=== PATIENT | male | born 1965 | race African-American/Black ===

== ENCOUNTER 2016-11-13 14:24 | Emergency (ER) | payer OTHER ==
[~2016-11-13] VITALS: Ht 172.7 cm; Wt 77.1 kg
[~2016-11-13 14:24] MED LIST: AMOXICILLIN500 M2 PO; COMBIVENT1 ARO IH; DAYPRO600 M1 PO; FLONASE ALLERG9.9 ML NAS; HYCODAN,HYDROME10 ML PO; HYDROCODONE BIT1 T11 PO; IBU800 MG PO; NAPROSYN500 MG PO; PERCOCET 325 MG1 TA2 PO; Peridex 473 ML473 ML PO; ROBAXIN750 MG PO; SKELAXIN800 MG PO; ZITHROMAX Z PA250 MG PO; ZITHROMAX250 MG PO
[2016-11-13] MEDS ORDERED: AMLODIPINE BESY1 TAB PO (14:33)
[2016-11-13] MEDS ORDERED: LATANOPROST2.5 ML OP (14:33)
[2016-11-13 14:49] LABS: BASO % 0.5 % (0.0-1.0); EOS # 0.1 10*3/uL (0.0-0.4); EOS % 1.1 % (1.0-4.0); HEMATOCRIT 43.9 % (42.0-52.0); HEMOGLOBIN 15.3 g/dl (14.0-18.0); LYMPH # 3.9 10*3/uL (1.3-4.4); LYMPH % 46.7 % (27.0-41.0); MEAN CELL VOLUME 98.9 fl (80.0-94.0); MEAN CORPUSCULAR HGB 34.5 pg (27.0-31.0); MEAN CORPUSCULAR HGB CONC 34.9 g/dl (33.0-37.0); MEAN PLATELET VOLUME 9.4 fl (9.6-12.3); MONO # 0.6 10*3/uL (0.1-1.0); MONO % 7.5 % (3.0-9.0); NEUT # 3.7 10*3/uL (2.3-7.9); PLATELET COUNT AUTOMATED 273 10*3/uL (130-400); RED BLOOD COUNT 4.44 10*6/uL (4.50-5.90); RED CELL DISTRI WIDTH 12.8 % (0-14.5); WHITE BLOOD COUNT 8.4 10*3/uL (4.8-10.8)
[2016-11-13 15:04] LABS: ALBUMIN 3.5 gm/dl (3.1-4.5); ALKALINE PHOSPHATASE 72 U/L (45-117); BILIRUBIN, TOTAL 0.9 mg/dl (0.2-1.0); BUN 16 mg/dl (7-24); CARBON DIOXIDE 29 mmol/L (21-32); CHLORIDE 107 mmol/L (98-107); EST GLOM FILT AFRICAN AMERICAN > 60 ml/min; GLUCOSE 97 mg/dL (65-99); MAGNESIUM 2.1 mg/dL (1.5-2.1); POTASSIUM 4.4 mmol/L (3.5-5.1); SGOT/AST 18 IU/L (3-35); SGPT/ALT 19 U/L (12-78); SODIUM 142 mmol/L (136-145); TOTAL PROTEIN 7.4 gm/dL (6.4-8.2)
[2016-11-13 15:06] LABS: TROPONIN I < 0.015 ng/ml (<0.045)
[2016-11-13 15:11] LABS: PROTHROMBIN TIME 10.8 SECONDS (9.0-12.4)
== END 2016-11-13 17:18 | disposition home or self-care (01) ==
LOC: ED 14:24
PROVIDERS: Emergency Medicine
DX: R07.9 Chest pain, unspecified (principal); Z79.899 Other long term (current) drug therapy; Z91.030 Bee allergy status; Z91.018 Allergy to other foods

== ENCOUNTER → 2017-02-12 | Outpatient (CLI) | payer OTHER ==
[~2017-02-12] MED LIST changes: +AMLODIPINE BESY1 TAB PO; +LATANOPROST2.5 ML OP
== END | disposition home or self-care (01) ==
LOC: RAD 12:43
DX: J43.9 Emphysema, unspecified (principal); M54.5 Low back pain; Z87.891 Personal history of nicotine dependence

== ENCOUNTER 2017-02-28 13:50 | Emergency (ER) | payer OTHER ==
[~2017-02-28] VITALS: Ht 172.7 cm; Wt 77.1 kg
[2017-02-28 14:22] LABS: BILIRUBIN 1+ (NEGATIVE); BLOOD 3+ (NEGATIVE); CLARITY TURBID (CLEAR); COLOR YELLOW (YELLOW); GLUCOSE NEGATIVE (NEGATIVE); KETONE TRACE (NEGATIVE); NITRITE POSITIVE (NEGATIVE); PH 5.5 (5.0-9.0); SPECIFIC GRAVITY 1.015 (1.005-1.030); UROBILINOGEN >= 8.0 E.U./dl (0.2-1.0)
[2017-02-28 14:30] LABS: LEUKO ESTERASE 3+ (NEGATIVE)
[2017-02-28 14:42] LABS: BACTERIA 3+; RBC TNTC rbc/hpf (0-2); WBC TNTC wbc/hpf (0-5)
[2017-02-28] MEDS ORDERED: CIPRO500 MG PO (14:44)
== END 2017-02-28 19:37 | disposition home or self-care (01) ==
LOC: ED 13:50
PROVIDERS: Physician Assistant
DX: N30.01 Acute cystitis with hematuria (principal); Z91.030 Bee allergy status; Z91.018 Allergy to other foods; Z79.899 Other long term (current) drug therapy

== ENCOUNTER 2017-03-08 14:43 | Emergency (ER) | payer OTHER ==
[~2017-03-08] VITALS: Ht 172.7 cm; Wt 77.1 kg
[~2017-03-08 14:43] MED LIST changes: +CIPRO500 MG PO
[2017-03-08 16:56] LABS: BILIRUBIN NEGATIVE (NEGATIVE); BLOOD NEGATIVE (NEGATIVE); CLARITY CLEAR (CLEAR); COLOR YELLOW (YELLOW); GLUCOSE NEGATIVE (NEGATIVE); KETONE NEGATIVE (NEGATIVE); LEUKO ESTERASE TRACE (NEGATIVE); NITRITE NEGATIVE (NEGATIVE)
[2017-03-08 17:10] LABS: BACTERIA TRACE; RBC 0-2 rbc/hpf (0-2)
[2017-03-08] MEDS ORDERED: IBUPROFEN600 MG PO (18:31)
== END 2017-03-08 18:42 | disposition home or self-care (01) ==
LOC: ED 14:43
PROVIDERS: Physician Assistant
DX: N50.812 Left testicular pain (principal); F17.200 Nicotine dependence, unspecified, uncomplicated; Z91.030 Bee allergy status; Z91.018 Allergy to other foods; Z79.899 Other long term (current) drug therapy

== ENCOUNTER → 2017-03-26 | Outpatient (CLI) | payer OTHER ==
[~2017-03-26] MED LIST changes: +IBUPROFEN600 MG PO
[2017-03-26 16:02] LABS: HEMATOCRIT 40.5 % (42.0-52.0); MEAN CELL VOLUME 99.5 fl (80.0-94.0); MEAN CORPUSCULAR HGB 34.4 pg (27.0-31.0); MEAN CORPUSCULAR HGB CONC 34.6 g/dl (33.0-37.0); MEAN PLATELET VOLUME 9.7 fl (9.6-12.3); PLATELET COUNT AUTOMATED 225 10*3/uL (130-400); RED BLOOD COUNT 4.07 10*6/uL (4.50-5.90); RED CELL DISTRI WIDTH 13.2 % (0-14.5)
[2017-03-26 16:26] LABS: ATYPICAL LYMPHS 2 % (0-0); TOTAL CELLS COUNTED 100 #CELLS
[2017-03-26 16:27] LABS: PLATELET SUFFICIENCY NORMAL (NORMAL)
[2017-03-26 16:38] LABS: ALBUMIN 3.1 gm/dl (3.1-4.5); ALKALINE PHOSPHATASE 78 U/L (45-117); BUN 12 mg/dl (7-24); CHLORIDE 106 mmol/L (98-107); CREATININE 0.97 mg/dL (0.70-1.30); SGOT/AST 16 IU/L (3-35); SGPT/ALT 18 U/L (12-78); SODIUM 141 mmol/L (136-145); TOTAL PROTEIN 7.3 gm/dL (6.4-8.2)
[2017-03-26 16:40] LABS: FREE T4 1.07 ng/dl (0.76-1.46)
[2017-03-26 16:46] LABS: THYROID STIM HORMONE (HS) 0.604 uIU/ml (0.358-4.75)
== END | disposition home or self-care (01) ==
LOC: LAB 15:43
PROVIDERS: Internal Medicine
DX: J44.9 Chronic obstructive pulmonary disease, unspecified (principal); R63.4 Abnormal weight loss; F17.200 Nicotine dependence, unspecified, uncomplicated; R23.8 Other skin changes

== ENCOUNTER 2017-05-17 20:57 | Emergency (ER) | payer OTHER ==
[~2017-05-17] VITALS: Ht 170.1 cm; Wt 77.1 kg
== END 2017-05-17 23:20 | disposition home or self-care (01) ==
LOC: ED 20:57
DX: S50.02XA Contusion of left elbow, initial encounter (principal); F17.200 Nicotine dependence, unspecified, uncomplicated; Z91.030 Bee allergy status; Y04.0XXA Assault by unarmed brawl or fight, initial encounter; Y93.89 Activity, other specified; Y92.89 Other specified places as the place of occurrence of the external cause; Y99.8 Other external cause status

== ENCOUNTER 2018-02-16 10:44 | Emergency (ER) | payer OTHER ==
[~2018-02-16] VITALS: Ht 172.7 cm; Wt 74.8 kg
[2018-02-16 12:48] LABS: BILIRUBIN NEGATIVE (NEGATIVE); BLOOD NEGATIVE (NEGATIVE); CLARITY SL CLOUDY (CLEAR); COLOR YELLOW (YELLOW); GLUCOSE NEGATIVE (NEGATIVE); KETONE NEGATIVE (NEGATIVE); LEUKO ESTERASE 2+ (NEGATIVE); NITRITE NEGATIVE (NEGATIVE); UROBILINOGEN 0.2 E.U./dl (0.2-1.0)
[2018-02-16 12:56] LABS: BACTERIA 1+; WBC TNTC wbc/hpf (0-5)
[2018-02-16] MEDS ORDERED: CIPRO500 MG PO (13:25)
[2018-06-01] MEDS ORDERED: IBU800 MG PO (21:15)
== END 2018-02-16 13:27 | disposition home or self-care (01) ==
LOC: ED 10:44
PROVIDERS: Nurse Practitioner Family
DX: N39.0 Urinary tract infection, site not specified (principal); Z91.030 Bee allergy status; Z91.018 Allergy to other foods

== ENCOUNTER → 2018-07-21 | Outpatient (CLI) | payer OTHER | END | disposition home or self-care (01) | LOC: RAD 20:45 | DX: M24.841 Other specific joint derangements of right hand, not elsewhere classified (principal) ==

== ENCOUNTER 2019-01-10 10:45 | Inpatient (IN) | payer OTHER ==
[~2019-01-10] VITALS: Ht 172.7 cm; Wt 69.5 kg
--- NOTE | ~2019-01-10 | EKG ---
[place], [place] ELECTROCARDIOGRAM REPORT NAME: GERBER CHANEY III UNIT #: [id number] ROOM: [facility] DOCTOR: ELIS DRAFT REPORT BIRTHDATE: [birth year] [facility] Test Date: 2019-01-10 Test Time: 14:59:19 Pat Name: GERBER CHANEY Department: Room: [facility] 1 Gender: M Anesthesiologist Assistant: : 1965 Requested By: YOVANI MARTINEZ Order Number: [id number] Reading MD: Jimmy Serna MD Measurements Intervals [place] Rate: 58 P: 83 MO: 148 QRS: -27 QRSD: 94 T: 59 QT: 429 QTc: 422 Interpretive Statements Sinus rhythm Probable left atrial enlargement Borderline left axis deviation Borderline low voltage, extremity leads Electronically Signed On 01-10-2019 14:33:44 PDT by Jimmy Serna MD CM:EKGRPT:ELECTROCARDIOGRAM REPORT [id number] YOVANI MARTINEZ EPIPHANY DRAFT REPORT YOVANI MARTINEZ
--- NOTE | 2019-01-10 11:20 | NUR ---
53 year old MALE admitted to room # 517-1 for stabilization. 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 Compliant with admission procedure. Patient c/o anxiety, is unable to sit still, paces the floor continuously, looks about room, unable to focus eyes on nurse during interview. See assessment forms for additional information about patient status.
--- NOTE | 2019-01-10 11:40 | NUR ---
PATIENT MEETS [facility]. CINA=19. PATIENT WANTS TO FOLLOW UP WITH [facility] IN [place] FOR HIS AFTERCARE PLAN. [place] STAFF WILL SCHEDULE AN APPOINTMENT FOR PATIENT. CHAPO POST B.A. STOCKFEED MILLER
--- NOTE | 2019-01-10 11:50 | NUR ---
MEDICATED WITH PRN PO TYLENOL AND ROBAXIN FOR BODY ACHES AND CRAMPS, BENTYL AND ZOFRAN FOR ABDOMINAL CRAMPS AND NAUSEA, REQUIP FOR RESTLESS LEGS, VISTARIL FOR ANXIETY, AND IMMODIUM FOR DIARRHEA. ALSO STARTED SCHEDULED SUBUTEX SL ORDERED AT THIS TIME.
[2019-01-10 11:55] LABS: BASO # 0.1 10*3/uL (0.0-0.1); BASO % 0.6 % (0.0-1.0); EOS # 0.2 10*3/uL (0.0-0.4); EOS % 2.1 % (1.0-4.0); HEMATOCRIT 41.6 % (42.0-52.0); HEMOGLOBIN 13.8 g/dl (14.0-18.0); LYMPH % 49.5 % (27.0-41.0); MEAN CORPUSCULAR HGB 33.8 pg (27.0-31.0); MEAN CORPUSCULAR HGB CONC 33.2 g/dl (33.0-37.0); MONO # 0.7 10*3/uL (0.1-1.0); MONO % 8.9 % (3.0-9.0); NEUT # 3.1 10*3/uL (2.3-7.9); NEUT % 38.7 % (47.0-73.0); PLATELET COUNT AUTOMATED 244 10*3/uL (130-400); RED BLOOD COUNT 4.08 10*6/uL (4.50-5.90); WHITE BLOOD COUNT 8.1 10*3/uL (4.8-10.8)
[2019-01-10 12:00] VITALS: BP 153/81
[2019-01-10 12:06] LABS: INTERNATIONAL NORM RATIO 0.9 (2.0-3.5)
[2019-01-10 12:11] LABS: ALBUMIN 3.4 gm/dl (3.1-4.5); ALKALINE PHOSPHATASE 72 U/L (45-117); BUN 14 mg/dl (7-24); CHLORIDE 110 mmol/L (98-107); CREATININE 0.97 mg/dL (0.70-1.30); POTASSIUM 4.2 mmol/L (3.5-5.1); SGOT/AST 24 IU/L (3-35); SGPT/ALT 27 U/L (12-78); SODIUM 144 mmol/L (136-145); TOTAL PROTEIN 7.1 gm/dL (6.4-8.2)
[2019-01-10 12:22] LABS: ETHYL ALCOHOL < 3.0 mg/dl (<3)
--- NOTE | 2019-01-10 12:59 | NUR ---
PRN PO VISTARIL AND OTHER MEDICATIONS NOT EFFECTIVE FOR WITHDRAWAL SYMPTOMS, PER PATIENT. REPEATED THE VISTARIL X [address] MARTINEZ ORDER AND PROVIDED NICOTROL INHALER FOR SMOKING CRAVINGS.
[2019-01-10] MEDS ORDERED: LATANOPROST2.5 ML OU (13:03)
--- NOTE | 2019-01-10 13:03 | NUR ---
PATIENT REPORTS TAKING ONE HOME MEDICATION: LATANOPROST EYE DROPS AT BEDTIME. MED REC UPDATED.
--- NOTE | 2019-01-10 14:09 | NUR ---
PO VISTARIL EFFECTIVE; PATIENT IS LYING STILL IN BED.
[2019-01-10 14:25] LABS: BILIRUBIN NEGATIVE (NEGATIVE); BLOOD NEGATIVE (NEGATIVE); CLARITY CLEAR (CLEAR); COLOR YELLOW (YELLOW); GLUCOSE NEGATIVE (NEGATIVE); KETONE NEGATIVE (NEGATIVE); LEUKO ESTERASE NEGATIVE (NEGATIVE); NITRITE NEGATIVE (NEGATIVE); SPECIFIC GRAVITY 1.015 (1.005-1.030)
[2019-01-10 14:34] LABS: URINE AMPHETAMINES < 1000 (1000ng/ml); URINE BARBITURATES < 200 (200ng/ml); URINE BENZODIAZEPINES < 200 (200ng/ml); URINE CANNABINOIDS (THC) > 50 (50ng/ml); URINE COCAINE > 300 (300ng/ml); URINE METHADONE < 300 (300ng/ml); URINE OPIATES > 300 (300ng/ml)
[2019-01-10 14:46] LABS: URINE PHENCYCLIDINE < 25 (25ng/ml)
[2019-01-10 14:52] LABS: BACTERIA TRACE
[2019-01-10 16:00] VITALS: BP 105/62
--- NOTE | 2019-01-10 18:42 | NUR ---
MEDICATED WITH PRN PO ZOFRAN AND BENTYL FOR NAUSEA AND ABDOMINAL CRAMPS, MOTRIN FOR BODY ACHES, AND VISTARIL FOR ANXIETY.
--- NOTE | 2019-01-10 19:00 | NUR ---
PT IS IN BED ASLEEP AT THIS TIME. THERE ARE NO S/S OF DISTRESS NOTED. RESPS EASY AND NONLABORED. WILL CONTINUE TO MONITOR.
--- NOTE | 2019-01-10 19:42 | NUR ---
24 hr chart check complete.
[2019-01-10 20:00] VITALS: BP 122/79
--- NOTE | 2019-01-10 21:07 | NUR ---
PT STATES THAT HIS PRESCRIBED NICOTROL INHALER IS INEFEECTIVE. EDUCATION PROVIDED ON OTHER ALTERNATIVES HOWEVER HE STATES THAT HE IS UNABLE TO USE THE PATCHES D/T IT CAUSING A RASH AND HE CANNOT TOLERATE THE TASTE OF THE GUM. WILL CONTINUE TO MONITOR.
[2019-01-11] VITALS: BP 106/81
[2019-01-11 04:00] VITALS: BP 118/72
[2019-01-11 08:00] VITALS: BP 112/69
[2019-01-11 12:00] VITALS: BP 108/72
--- NOTE | 2019-01-11 12:10 | NUR ---
Patient resting. Responding to scheduled medications with fewer complaints of pain and anxiety.
--- NOTE | 2019-01-11 15:17 | NUR ---
[place] STAFF FOLLOWED UP WITH PATIENT. PATIENT IS STILL WANTING TO GO TO [facility] IN [place]. CHAPO POST B.A. BUSINESS COORDINATOR
[2019-01-11 16:00] VITALS: BP 122/77
--- NOTE | 2019-01-11 19:13 | NUR ---
PATIENT NOT IN ROOM, BELONGINGS NOT IN ROOM, NOT FOUND ON UNIT; LEFT AMA. DR. FIERRO NOTIFIED, NURSING INSTRUMENT/CONTROL TECHNICIAN NOTIFIED.
== END 2019-01-11 19:13 | disposition left against medical advice (07) | DRG 894 ==
LOC: 5E 10:45
PROVIDERS: ADMIT Internal Medicine
DX: F11.23 Opioid dependence with withdrawal (principal); F41.9 Anxiety disorder, unspecified; J45.909 Unspecified asthma, uncomplicated; G25.81 Restless legs syndrome; R19.7 Diarrhea, unspecified; R03.0 Elevated blood-pressure reading, without diagnosis of hypertension; D53.9 Nutritional anemia, unspecified; F14.10 Cocaine abuse, uncomplicated; F17.210 Nicotine dependence, cigarettes, uncomplicated; Z91.030 Bee allergy status; Z91.018 Allergy to other foods; Z79.899 Other long term (current) drug therapy; E87.8 Other disorders of electrolyte and fluid balance, not elsewhere classified

== ENCOUNTER 2019-04-28 23:13 | Emergency (ER) | payer OTHER ==
[~2019-04-28] VITALS: Ht 172.7 cm; Wt 72.6 kg
[~2019-04-28 23:13] MED LIST changes: +LATANOPROST2.5 ML OU
[2019-04-29 00:13] LABS: BASO % 0.2 % (0.0-1.0); EOS % 0.2 % (1.0-4.0); HEMATOCRIT 48.6 % (42.0-52.0); HEMOGLOBIN 16.6 g/dl (14.0-18.0); LYMPH # 3.7 10*3/uL (1.3-4.4); LYMPH % 29.9 % (27.0-41.0); MEAN CELL VOLUME 96.8 fl (80.0-94.0); MEAN CORPUSCULAR HGB 33.1 pg (27.0-31.0); MEAN CORPUSCULAR HGB CONC 34.2 g/dl (33.0-37.0); MONO # 0.8 10*3/uL (0.1-1.0); MONO % 6.1 % (3.0-9.0); NEUT # 7.9 10*3/uL (2.3-7.9); NEUT % 63.3 % (47.0-73.0); PLATELET COUNT AUTOMATED 344 10*3/uL (130-400); RED BLOOD COUNT 5.02 10*6/uL (4.50-5.90); RED CELL DISTRI WIDTH 12.3 % (0-14.5); WHITE BLOOD COUNT 12.5 10*3/uL (4.8-10.8)
[2019-04-29 00:27] LABS: ALBUMIN 3.7 gm/dl (3.1-4.5); ALKALINE PHOSPHATASE 69 U/L (45-117); BUN 29 mg/dl (7-24); CHLORIDE 101 mmol/L (98-107); CREATININE 1.23 mg/dL (0.70-1.30); LIPASE 177 U/L (73-393); POTASSIUM 3.7 mmol/L (3.5-5.1); SGOT/AST 25 IU/L (3-35); SGPT/ALT 29 U/L (12-78); SODIUM 134 mmol/L (136-145); TOTAL PROTEIN 7.7 gm/dL (6.4-8.2)
[2019-04-29] MEDS ORDERED: TESSALON PERLE100 M1 PO (01:31)
[2019-04-29] MEDS ORDERED: ZOFRAN4 MG PO (01:31)
== END 2019-04-29 02:26 | disposition home or self-care (01) ==
LOC: ED 23:13
PROVIDERS: Nurse Practitioner Family
DX: A08.4 Viral intestinal infection, unspecified (principal); J06.9 Acute upper respiratory infection, unspecified; R11.2 Nausea with vomiting, unspecified; J45.909 Unspecified asthma, uncomplicated; F17.200 Nicotine dependence, unspecified, uncomplicated; Z91.030 Bee allergy status; Z91.018 Allergy to other foods

== ENCOUNTER 2019-08-24 13:29 | Inpatient (IN) | payer OTHER ==
[~2019-08-24] VITALS: Ht 172.7 cm; Wt 72.7 kg
[~2019-08-24 13:29] MED LIST changes: +TESSALON PERLE100 M1 PO; +ZOFRAN4 MG PO
[2019-08-24 14:30] VITALS: BP 144/98
--- NOTE | 2019-08-24 14:31 | NUR ---
PATIENT MEETS [facility]. CIWA IS 15, CINA=19. PATIENT IS GOING TO FOLLOW UP WITH [facility] FOR HIS AFTERCARE PLAN. CHAPO POST B.A. DIRECTOR OF BUSINESS CONTINUITY
--- NOTE | 2019-08-24 14:32 | NUR ---
53 year old MALE admitted to room # 422 for stabilization. Reports an addiction to ETOH AND HEROIN last used 3/9 hours prior to admission. Compliant with admission procedure. Patient denies any anxiety, but is unable to sit still, taps toes to floor continuously, looks about room, unable to focus eyes on nurse during interview. See assessment forms for additional information about patient status.
[2019-08-24 15:30] LABS: BASO % 0.6 % (0.0-1.0); EOS # 0.1 10*3/uL (0.0-0.4); EOS % 0.9 % (1.0-4.0); HEMOGLOBIN 15.3 g/dl (14.0-18.0); MEAN CELL VOLUME 99.1 fl (80.0-94.0); MEAN CORPUSCULAR HGB CONC 33.3 g/dl (33.0-37.0); MEAN PLATELET VOLUME 9.7 fl (9.6-12.3); MONO # 0.3 10*3/uL (0.1-1.0); MONO % 4.4 % (3.0-9.0); NEUT # 3.5 10*3/uL (2.3-7.9); PLATELET COUNT AUTOMATED 306 10*3/uL (130-400); RED BLOOD COUNT 4.64 10*6/uL (4.50-5.90); RED CELL DISTRI WIDTH 12.7 % (0-14.5); WHITE BLOOD COUNT 6.9 10*3/uL (4.8-10.8)
[2019-08-24 15:44] LABS: ALBUMIN 3.7 gm/dl (3.1-4.5); ALKALINE PHOSPHATASE 72 U/L (45-117); BUN 16 mg/dl (7-24); CHLORIDE 108 mmol/L (98-107); CREATININE 1.02 mg/dL (0.70-1.30); POTASSIUM 4.1 mmol/L (3.5-5.1); SGOT/AST 18 IU/L (3-35); SGPT/ALT 23 U/L (12-78); SODIUM 141 mmol/L (136-145)
[2019-08-24 15:48] LABS: ETHYL ALCOHOL < 3.0 mg/dl (<3)
[2019-08-24 16:09] LABS: URINE AMPHETAMINES < 1000 (1000ng/ml); URINE BARBITURATES < 200 (200ng/ml); URINE BENZODIAZEPINES < 200 (200ng/ml); URINE CANNABINOIDS (THC) < 50 (50ng/ml); URINE COCAINE > 300 (300ng/ml); URINE METHADONE < 300 (300ng/ml); URINE OPIATES < 300 (300ng/ml)
[2019-08-24 16:12] LABS: URINE PHENCYCLIDINE < 25 (25ng/ml)
[2019-08-24 16:20] LABS: BACTERIA TRACE; BILIRUBIN NEGATIVE (NEGATIVE); BLOOD TRACE-LYSED (NEGATIVE); CLARITY CLEAR (CLEAR); COLOR YELLOW (YELLOW); GLUCOSE NEGATIVE (NEGATIVE); KETONE NEGATIVE (NEGATIVE); LEUKO ESTERASE 2+ (NEGATIVE); NITRITE NEGATIVE (NEGATIVE); PH 7.5 (5.0-9.0); SPECIFIC GRAVITY 1.015 (1.005-1.030); UROBILINOGEN 0.2 E.U./dl (0.2-1.0)
[2019-08-24 20:00] VITALS: BP 119/87
--- NOTE | 2019-08-24 22:05 | NUR ---
PATIENT MEDICATED WITH ROBAXIN, VISTARIL AND TRAZODONE PER PRN ORDER FOR S/S OF WITH DRAWAL. SEE EMAR. REINFORCED USE OF CALL LIGHT.
[2019-08-25] VITALS: BP 101/65
--- NOTE | 2019-08-25 | NUR ---
Patient resting. Responding to scheduled medications with fewer complaints of pain and anxiety.
[2019-08-25 08:00] VITALS: BP 120/68
[2019-08-25 12:00] VITALS: BP 98/66
--- NOTE | 2019-08-25 13:16 | NUR ---
PATIENT STILL WANTS TO FOLLOW UP WITH [facility] FOR HIS AFTERCARE PLAN. CHAPO POST B.A. PROJECT ARCHITECT
--- NOTE | 2019-08-25 16:30 | NUR ---
ANOTHER FEMALE [facility]IENT FOUND IN PATIENT ROOM, PATIENT WAS ALREADY EDUCATED ON RULES AND REGULATIONS. PT SIGNED OUT AMA WITH BRIAN CHEN
--- NOTE | 2019-08-25 16:31 | NUR ---
AND BREANNE RAMIREZ NOTIFIED OF LEAVING AMA
== END 2019-08-25 16:51 | disposition left against medical advice (07) | DRG 770 ==
LOC: 4E 13:29
PROVIDERS: Internal Medicine; ADMIT Family Medicine
DX: F11.23 Opioid dependence with withdrawal (principal); F10.239 Alcohol dependence with withdrawal, unspecified; G25.81 Restless legs syndrome; F41.9 Anxiety disorder, unspecified; F17.210 Nicotine dependence, cigarettes, uncomplicated; F14.10 Cocaine abuse, uncomplicated; E87.8 Other disorders of electrolyte and fluid balance, not elsewhere classified; J45.909 Unspecified asthma, uncomplicated; D75.89 Other specified diseases of blood and blood-forming organs; R73.9 Hyperglycemia, unspecified; Z53.29 Procedure and treatment not carried out because of patient's decision for other reasons; Z83.3 Family history of diabetes mellitus; Z71.6 Tobacco abuse counseling; Z80.0 Family history of malignant neoplasm of digestive organs; Z91.030 Bee allergy status; Z91.018 Allergy to other foods; Z79.899 Other long term (current) drug therapy

== ENCOUNTER 2019-08-30 15:08 | Emergency (ER) | payer OTHER ==
[~2019-08-30] VITALS: Ht 172.7 cm; Wt 72.6 kg
[2019-08-30] MEDS ORDERED: VENT7GM INH (15:26)
[2019-08-30] MEDS ORDERED: FLONASE ALLERG9.9 ML NAS (16:50)
[2019-08-30] MEDS ORDERED: ZITHROMAX250 MG PO (16:50)
[2019-08-30] MEDS ORDERED: ZYRTEC10 M3 PO (16:50)
== END 2019-08-30 16:54 | disposition home or self-care (01) ==
LOC: ED 15:08
DX: J20.9 Acute bronchitis, unspecified (principal); J45.909 Unspecified asthma, uncomplicated; Z91.030 Bee allergy status; I10 Essential (primary) hypertension; F17.200 Nicotine dependence, unspecified, uncomplicated; Z91.018 Allergy to other foods; Z79.899 Other long term (current) drug therapy

== ENCOUNTER 2019-09-03 14:24 | Emergency (ER) | payer OTHER ==
[~2019-09-03] VITALS: Ht 172.7 cm; Wt 72.6 kg
[~2019-09-03 14:24] MED LIST changes: +VENT7GM INH; +ZYRTEC10 M3 PO
[2019-09-03 15:12] LABS: BASO # 0.1 10*3/uL (0.0-0.1); BASO % 0.8 % (0.0-1.0); EOS # 0.1 10*3/uL (0.0-0.4); EOS % 1.6 % (1.0-4.0); HEMOGLOBIN 13.5 g/dl (14.0-18.0); LYMPH # 2.7 10*3/uL (1.3-4.4); LYMPH % 41.5 % (27.0-41.0); MEAN CELL VOLUME 99.5 fl (80.0-94.0); MEAN CORPUSCULAR HGB 32.8 pg (27.0-31.0); MEAN CORPUSCULAR HGB CONC 32.9 g/dl (33.0-37.0); MEAN PLATELET VOLUME 9.4 fl (9.6-12.3); MONO # 0.6 10*3/uL (0.1-1.0); MONO % 8.9 % (3.0-9.0); NEUT % 46.6 % (47.0-73.0); PLATELET COUNT AUTOMATED 311 10*3/uL (130-400); RED BLOOD COUNT 4.12 10*6/uL (4.50-5.90); RED CELL DISTRI WIDTH 12.9 % (0-14.5); WHITE BLOOD COUNT 6.4 10*3/uL (4.8-10.8)
[2019-09-03 15:28] LABS: ALKALINE PHOSPHATASE 53 U/L (45-117); BUN 14 mg/dl (7-24); CHLORIDE 108 mmol/L (98-107); CREATININE 0.97 mg/dL (0.70-1.30); POTASSIUM 5.9 mmol/L (3.5-5.1); SGOT/AST 91 IU/L (3-35); SGPT/ALT 39 U/L (12-78); SODIUM 140 mmol/L (136-145); TOTAL PROTEIN 7.5 gm/dL (6.4-8.2)
[2019-09-03] MEDS ORDERED: DOXYCYCLINE100 M3 PO (16:16)
[2019-09-03] MEDS ORDERED: ROBITUSSIN DM 101 OZ PO (16:16)
[2019-09-03] MEDS ORDERED: PREDNISONE50 MG PO (16:16)
== END 2019-09-03 16:19 | disposition home or self-care (01) ==
LOC: ED 14:24
PROVIDERS: Nurse Practitioner Family
DX: J44.1 Chronic obstructive pulmonary disease with (acute) exacerbation (principal); F17.200 Nicotine dependence, unspecified, uncomplicated; Z91.030 Bee allergy status; Z91.018 Allergy to other foods

== ENCOUNTER 2020-03-30 10:01 | Inpatient (IN) | payer OTHER ==
[~2020-03-30] VITALS: Ht 172.7 cm; Wt 80.5 kg
[~2020-03-30 10:01] MED LIST changes: +DOXYCYCLINE100 M3 PO; +PREDNISONE50 MG PO; +ROBITUSSIN DM 101 OZ PO
[2020-03-30 11:00] VITALS: BP 129/91
--- NOTE | 2020-03-30 11:00 | NUR ---
A 54, admitted to , under the services of BECKI Orourke DO with a diagnosis of OPIATE AND ALCOHOL DEPENDENCY/WITHDRAWAL. Chief complaint is WITHDRAWAL S/S. Patient arrived via ambulatory from [place]. Monitor applied. Initial assessment completed. Vital signs taken and recorded. BECKI OROURKE DO notified of admission to the unit. Orders received. See assessment for past medical history, medications and allergies. Patient and/or family oriented to unit. [facility] visitation policy reviewed. Clothing/patient valuable form completed. EMANUEL PAINTER
--- NOTE | 2020-03-30 11:11 | NUR ---
PATIENT MEETS [facility]. CINA=15,CIWA=15. PATIENT IS WANTING TO FOLLOW UP WITH [facility] FOR THE VIVITROL SHOT. CHAPO POST B.A. RESEARCH FELLOW
--- NOTE | 2020-03-30 13:00 | NUR ---
IV started left antecubital with #22 protective cath after 1 attempts. Site prepped with ALCOHOL Sterile dressing applied. Patient tolerated procedure well. IV infusing at 100 cc/hr. EMANUEL PAINTER
[2020-03-30 13:07] LABS: BASO % 0.5 % (0.0-1.0); EOS # 0.1 10*3/uL (0.0-0.4); EOS % 1.3 % (1.0-4.0); HEMATOCRIT 39.2 % (42.0-52.0); LYMPH # 3.7 10*3/uL (1.3-4.4); LYMPH % 44.3 % (27.0-41.0); MEAN CELL VOLUME 97.8 fl (80.0-94.0); MEAN CORPUSCULAR HGB 32.9 pg (27.0-31.0); MEAN CORPUSCULAR HGB CONC 33.7 g/dl (33.0-37.0); MONO # 0.9 10*3/uL (0.1-1.0); MONO % 10.5 % (3.0-9.0); NEUT # 3.6 10*3/uL (2.3-7.9); NEUT % 43.3 % (47.0-73.0); PLATELET COUNT AUTOMATED 262 10*3/uL (130-400); RED BLOOD COUNT 4.01 10*6/uL (4.50-5.90); RED CELL DISTRI WIDTH 12.6 % (0-14.5); WHITE BLOOD COUNT 8.3 10*3/uL (4.8-10.8)
[2020-03-30 13:23] LABS: ALBUMIN 3.5 gm/dl (3.1-4.5); ALKALINE PHOSPHATASE 62 U/L (45-117); BUN 20 mg/dl (7-24); CHLORIDE 105 mmol/L (98-107); CREATININE 0.92 mg/dL (0.70-1.30); ETHYL ALCOHOL < 3.0 mg/dl (<3); LIPASE 70 U/L (73-393); POTASSIUM 3.4 mmol/L (3.5-5.1); SGOT/AST 19 IU/L (3-35); SGPT/ALT 22 U/L (12-78); SODIUM 139 mmol/L (136-145); TOTAL PROTEIN 6.9 gm/dL (6.4-8.2)
[2020-03-30 14:07] LABS: BILIRUBIN Negative (Negative); BLOOD Negative (Negative); CLARITY Clear (Clear); COLOR Yellow (Yellow); GLUCOSE Negative (Negative); KETONE Negative (Negative); LEUKO ESTERASE Negative (Negative); NITRITE Negative (Negative); SPECIFIC GRAVITY 1.025 (1.001-1.030)
[2020-03-30 14:19] LABS: BACTERIA 1+; EPITHELIAL CELLS 0-2; MUCOUS 2+; WBC 0-2 wbc/hpf (0-5)
[2020-03-30 14:35] LABS: URINE BARBITURATES < 200 (200ng/ml); URINE CANNABINOIDS (THC) > 50 (50ng/ml); URINE COCAINE > 300 (300ng/ml); URINE METHADONE < 300 (300ng/ml); URINE OPIATES > 300 (300ng/ml)
[2020-03-30 14:41] LABS: URINE AMPHETAMINES < 1000 (1000ng/ml); URINE BENZODIAZEPINES < 200 (200ng/ml)
[2020-03-30 14:51] LABS: URINE PHENCYCLIDINE < 25 (25ng/ml)
[2020-03-30 16:00] VITALS: BP 132/78
--- NOTE | 2020-03-30 17:46 | NUR ---
PT IV SITE TO LEFT ANTECUBITAL DISCONTNUED AT THIS TIME DUE TO IV SITE BEING OCCLUDED AND UNABLE TO FLUSH. PT REFUSING ANOTHER IV SITE AT THIS TIME. PHYSICIANS NOTIFIED AND STATE THAT THEY WILL BE UP TO FLOOR TO TALK TO PATIENT.
--- NOTE | 2020-03-30 18:00 | NUR ---
IV started left forearm with #22 protective cath after 1 attempts. Site prepped with Chloroprep. Sterile dressing applied. Patient tolerated procedure well. RACHEL DAS
[2020-03-30 20:00] VITALS: BP 129/77
--- NOTE | 2020-03-30 20:00 | NUR ---
PATIENT VOICED NO COMPLAINTS. NO OVERT DISTRESS NOTED, RESP ARE EASY AND REUGALR. BED IS LOCKED IN LOWEST POSITON, CALL LIGHT WITHIN REACH
[2020-03-31] VITALS: BP 148/92
[2020-03-31 06:56] LABS: BASO % 0.5 % (0.0-1.0); EOS # 0.1 10*3/uL (0.0-0.4); LYMPH # 3.4 10*3/uL (1.3-4.4); LYMPH % 53.6 % (27.0-41.0); MEAN CELL VOLUME 98.7 fl (80.0-94.0); MEAN CORPUSCULAR HGB CONC 33.4 g/dl (33.0-37.0); MEAN PLATELET VOLUME 10.3 fl (9.6-12.3); MONO # 0.7 10*3/uL (0.1-1.0); MONO % 10.4 % (3.0-9.0); NEUT # 2.1 10*3/uL (2.3-7.9); NEUT % 33.3 % (47.0-73.0); PLATELET COUNT AUTOMATED 259 10*3/uL (130-400); RED BLOOD COUNT 3.85 10*6/uL (4.50-5.90); RED CELL DISTRI WIDTH 12.9 % (0-14.5); WHITE BLOOD COUNT 6.4 10*3/uL (4.8-10.8)
[2020-03-31 07:27] LABS: CHLORIDE 110 mmol/L (98-107); POTASSIUM 3.9 mmol/L (3.5-5.1); SODIUM 142 mmol/L (136-145)
[2020-03-31 07:32] LABS: BUN 18 mg/dl (7-24); CREATININE 0.76 mg/dL (0.70-1.30)
[2020-03-31 08:00] VITALS: BP 138/95
--- NOTE | 2020-03-31 08:34 | NUR ---
PT REQUESTED AND GIVEN VISTARIL FOR C/O ANXIETY WILL MONITOR
--- NOTE | 2020-03-31 08:35 | NUR ---
PT REQUESTED AND GIVEN ROBAXIN FOR MUSCLE ACHES WILL MONITOR
--- NOTE | 2020-03-31 09:20 | NUR ---
PT RESTING IN BED,. EYES CLOSED. VISTARIL AND ROBAXIN APPEAR EFFECTIVE. WILL MONITOR
[2020-03-31 16:00] VITALS: BP 126/89
[2020-03-31] MEDS ORDERED: XALATAN 0.005%2.5 ML INTRAOC (18:22)
--- NOTE | 2020-03-31 19:07 | NUR ---
PORTABLE SAWYER MADE AWARE THAT PATIENT LEFT WITHOUT TELLING STAFF. PATIENT DID HAVE AN IV IN, UNAWARE IF PATIENT REMOVED PRIOR TO LEAVING. CALL WILL BE MADE TO PATIENT/NEXT OF KIN.
--- NOTE | 2020-03-31 19:16 | NUR ---
CALLED BACK MADE AWARE THAT PATIENT LEFT AMA WITH IV. STATED OK
--- NOTE | 2020-03-31 19:16 | NUR ---
PT NOT IN ROOM , TOOK BELONGINGS CALLED PT CELL PHONE , LEFT DETAILED VOICEMAIL REGARDING PT NEEDING TO COME BACK TO HOSPITAL TO HAVE IV REMOVED ALSO CALLED PT MOTHER TO HAVE HER CALL PT TO RETURN TO HOSPITAL
--- NOTE | 2020-03-31 19:17 | NUR ---
INFORMED PROPERTY MASTER THAT UNABLE TO GET AHOLD OF PATIENT, MOTHER ANSWERED PHONE, STATED PATIENT IS PROBABLY AT HOME LAYING DOWN, BUT STATES SHE WILL ATTEMPT TO GET AHOLD OF HIM. SUPERVIOSR STATES THAT IF PATIENT DOESN'T CALL BACK LAW ENFORCEMENT WILL PROBABLY NEEDS CALLED.
--- NOTE | 2020-03-31 20:26 | NUR ---
Per elopement policy as it is believed patient left with an intact IV and staff was not able to get a response from patient when cell phone was called, [facility] notified to do a wellness check and to ask patient to return to the hospital so the IV can be removed safely.
== END 2020-03-31 19:34 | disposition left against medical advice (07) | DRG 770 ==
LOC: 4E 10:01
PROVIDERS: Hospitalist; Podiatrist; ADMIT Internal Medicine; ATTEND Internal Medicine
DX: F11.23 Opioid dependence with withdrawal (principal); E87.6 Hypokalemia; F17.210 Nicotine dependence, cigarettes, uncomplicated; R73.9 Hyperglycemia, unspecified; H40.033 Anatomical narrow angle, bilateral; J45.909 Unspecified asthma, uncomplicated; F14.10 Cocaine abuse, uncomplicated; F41.9 Anxiety disorder, unspecified; G25.81 Restless legs syndrome; D75.89 Other specified diseases of blood and blood-forming organs; I10 Essential (primary) hypertension; F10.939 Alcohol use, unspecified with withdrawal, unspecified; Z53.29 Procedure and treatment not carried out because of patient's decision for other reasons; J44.9 Chronic obstructive pulmonary disease, unspecified; Z83.3 Family history of diabetes mellitus; Z80.0 Family history of malignant neoplasm of digestive organs; Z84.89 Family history of other specified conditions; Z91.030 Bee allergy status; Z91.018 Allergy to other foods; Z79.899 Other long term (current) drug therapy; Z79.52 Long term (current) use of systemic steroids

== ENCOUNTER 2020-11-16 04:28 | Emergency (ER) | payer OTHER ==
[~2020-11-16] VITALS: Ht 170.1 cm; Wt 81.6 kg
[~2020-11-16 04:28] MED LIST changes: +XALATAN 0.005%2.5 ML INTRAOC
[2020-11-16] MEDS ORDERED: PREDNISONE20 M1 PO (05:52)
== END 2020-11-16 06:04 | disposition home or self-care (01) ==
LOC: ED 04:28
DX: R07.89 Other chest pain (principal); R07.81 Pleurodynia; F17.200 Nicotine dependence, unspecified, uncomplicated; Z91.030 Bee allergy status; Z91.018 Allergy to other foods; Z79.899 Other long term (current) drug therapy

== ENCOUNTER 2021-01-06 20:43 | Emergency (ER) | payer OTHER ==
[~2021-01-06] VITALS: Ht 172.7 cm; Wt 74.8 kg
[~2021-01-06 20:43] MED LIST changes: +PREDNISONE20 M1 PO
[2021-01-06 21:07] LABS: BASO % 0.4 % (0.0-1.0); EOS # 0.1 10*3/uL (0.0-0.4); EOS % 0.9 % (1.0-4.0); HEMATOCRIT 42.3 % (42.0-52.0); LYMPH # 4.1 10*3/uL (1.3-4.4); LYMPH % 43.3 % (27.0-41.0); MEAN CELL VOLUME 98.8 fl (80.0-94.0); MEAN CORPUSCULAR HGB 32.7 pg (27.0-31.0); MEAN CORPUSCULAR HGB CONC 33.1 g/dl (33.0-37.0); MEAN PLATELET VOLUME 9.6 fl (9.6-12.3); MONO # 0.5 10*3/uL (0.1-1.0); MONO % 5.5 % (3.0-9.0); NEUT # 4.7 10*3/uL (2.3-7.9); NEUT % 49.7 % (47.0-73.0); PLATELET COUNT AUTOMATED 297 10*3/uL (130-400); RED BLOOD COUNT 4.28 10*6/uL (4.50-5.90); RED CELL DISTRI WIDTH 13.2 % (0-14.5); WHITE BLOOD COUNT 9.6 10*3/uL (4.8-10.8)
[2021-01-06 21:24] LABS: ALBUMIN 3.8 gm/dl (3.1-4.5); ALKALINE PHOSPHATASE 81 U/L (45-117); BUN 12 mg/dl (7-24); CHLORIDE 109 mmol/L (98-107); CREATININE 0.95 mg/dL (0.70-1.30); SGOT/AST 24 IU/L (3-35); SGPT/ALT 23 U/L (12-78); SODIUM 140 mmol/L (136-145); TOTAL PROTEIN 7.7 gm/dL (6.4-8.2)
[2021-01-06 21:31] LABS: ETHYL ALCOHOL < 3.0 mg/dl (<3)
[2021-01-06 21:45] LABS: BILIRUBIN Negative (Negative); BLOOD Negative (Negative); CLARITY Clear (Clear); COLOR Yellow (Yellow); GLUCOSE Negative (Negative); KETONE Trace (Negative); LEUKO ESTERASE Negative (Negative); NITRITE Negative (Negative); SPECIFIC GRAVITY 1.025 (1.001-1.030)
[2021-01-06 21:52] LABS: BACTERIA 1+; EPITHELIAL CELLS 0-2; MUCOUS 1+; RBC 0-2 rbc/hpf (0-2)
[2021-01-06 21:54] LABS: URINE AMPHETAMINES < 1000 (1000ng/ml); URINE BARBITURATES < 200 (200ng/ml); URINE BENZODIAZEPINES > 200 (200ng/ml); URINE CANNABINOIDS (THC) > 50 (50ng/ml); URINE COCAINE > 300 (300ng/ml); URINE METHADONE < 300 (300ng/ml); URINE OPIATES > 300 (300ng/ml)
[2021-01-06 21:55] LABS: URINE PHENCYCLIDINE < 25 (25ng/ml)
== END 2021-01-06 21:57 | disposition left against medical advice (07) ==
LOC: ED 20:43
PROVIDERS: Internal Medicine
DX: R47.81 Slurred speech (principal); R41.82 Altered mental status, unspecified; F17.200 Nicotine dependence, unspecified, uncomplicated; Z53.29 Procedure and treatment not carried out because of patient's decision for other reasons; Z91.030 Bee allergy status; Z91.018 Allergy to other foods; Z79.899 Other long term (current) drug therapy

== ENCOUNTER 2021-04-13 16:14 | Emergency (ER) | payer OTHER ==
[~2021-04-13] VITALS: Ht 172.7 cm; Wt 77.1 kg
[2021-04-13] MEDS ORDERED: PREDNISONE20 M1 PO (17:10)
[2021-04-13] MEDS ORDERED: VIBRAMYCIN100 MG PO (17:10)
[2021-04-13] MEDS ORDERED: PROVENTIL HFA6.7 GM INH (17:10)
== END 2021-04-13 17:19 | disposition home or self-care (01) ==
LOC: ED 16:14
DX: J45.901 Unspecified asthma with (acute) exacerbation (principal); Z20.822 Contact with and (suspected) exposure to COVID-19; J44.9 Chronic obstructive pulmonary disease, unspecified; F17.210 Nicotine dependence, cigarettes, uncomplicated; Z91.030 Bee allergy status; Z91.018 Allergy to other foods

== ENCOUNTER 2021-04-29 12:08 | Emergency (ER) | payer OTHER ==
[~2021-04-29] VITALS: Wt 79.4 kg
[~2021-04-29 12:08] MED LIST changes: +PROVENTIL HFA6.7 GM INH; +VIBRAMYCIN100 MG PO
== END 2021-04-29 15:56 | disposition left against medical advice (07) ==
LOC: ED 12:08
DX: R05.9 Cough, unspecified (principal); R09.81 Nasal congestion; Z53.21 Procedure and treatment not carried out due to patient leaving prior to being seen by health care provider

== ENCOUNTER 2021-09-17 17:43 | Emergency (ER) | payer OTHER ==
[~2021-09-17] VITALS: Ht 172.7 cm; Wt 74.8 kg
== END 2021-09-17 21:37 | disposition home or self-care (01) ==
LOC: ED 17:43
DX: R10.32 Left lower quadrant pain (principal); Z91.030 Bee allergy status; Z87.891 Personal history of nicotine dependence

== ENCOUNTER 2021-10-01 21:24 | Emergency (ER) | payer OTHER ==
[~2021-10-01] VITALS: Ht 172.7 cm; Wt 74.8 kg
[2021-10-02 02:46] LABS: BASO # 0.1 10*3/uL (0.0-0.1); BASO % 0.7 % (0.0-1.0); EOS # 0.2 10*3/uL (0.0-0.4); EOS % 2.6 % (1.0-4.0); HEMATOCRIT 42.8 % (42.0-52.0); LYMPH # 4.3 10*3/uL (1.3-4.4); MEAN CELL VOLUME 98.4 fl (80.0-94.0); MEAN CORPUSCULAR HGB 32.9 pg (27.0-31.0); MEAN CORPUSCULAR HGB CONC 33.4 g/dl (33.0-37.0); MEAN PLATELET VOLUME 9.3 fl (9.6-12.3); MONO # 0.4 10*3/uL (0.1-1.0); MONO % 4.8 % (3.0-9.0); NEUT # 3.1 10*3/uL (2.3-7.9); NEUT % 38.8 % (47.0-73.0); PLATELET COUNT AUTOMATED 317 10*3/uL (130-400); RED BLOOD COUNT 4.35 10*6/uL (4.50-5.90); RED CELL DISTRI WIDTH 12.6 % (0-14.5); WHITE BLOOD COUNT 8.1 10*3/uL (4.8-10.8)
[2021-10-02 03:04] LABS: ALKALINE PHOSPHATASE 77 U/L (45-117); BUN 10 mg/dl (7-24); CHLORIDE 107 mmol/L (98-107); CREATININE 0.96 mg/dL (0.70-1.30); POTASSIUM 4.1 mmol/L (3.5-5.1); SGOT/AST 27 IU/L (3-35); SGPT/ALT 26 U/L (12-78); SODIUM 139 mmol/L (136-145); TOTAL PROTEIN 8.1 gm/dL (6.4-8.2)
== END 2021-10-02 08:20 | disposition short-term general hospital (02) ==
LOC: ED 21:24
PROVIDERS: Emergency Medicine
DX: K40.90 Unilateral inguinal hernia, without obstruction or gangrene, not specified as recurrent (principal); K56.609 Unspecified intestinal obstruction, unspecified as to partial versus complete obstruction

== ENCOUNTER → 2022-05-06 | Outpatient (CLI) | payer OTHER ==
[~2022-05-06] MED LIST changes: +CELEXA10 MG PO
[2022-05-06 13:15] LABS: BASO % 0.5 % (0.0-1.0); EOS # 0.2 10*3/uL (0.0-0.4); EOS % 2.1 % (1.0-4.0); HEMATOCRIT 39.7 % (42.0-52.0); LYMPH # 3.5 10*3/uL (1.3-4.4); LYMPH % 43.8 % (27.0-41.0); MEAN CELL VOLUME 98.8 fl (80.0-94.0); MEAN CORPUSCULAR HGB 32.8 pg (27.0-31.0); MEAN CORPUSCULAR HGB CONC 33.2 g/dl (33.0-37.0); MEAN PLATELET VOLUME 9.3 fl (9.6-12.3); MONO # 0.6 10*3/uL (0.1-1.0); MONO % 7.7 % (3.0-9.0); NEUT # 3.7 10*3/uL (2.3-7.9); NEUT % 45.7 % (47.0-73.0); PLATELET COUNT AUTOMATED 268 10*3/uL (130-400); RED BLOOD COUNT 4.02 10*6/uL (4.50-5.90); RED CELL DISTRI WIDTH 12.3 % (0-14.5)
[2022-05-06 13:33] LABS: BUN 11 mg/dl (7-24); CHLORIDE 107 mmol/L (98-107); CHOLESTEROL 141 mg/dL (<200); CREATININE 0.85 mg/dL (0.70-1.30); POTASSIUM 3.7 mmol/L (3.5-5.1); SGPT/ALT 24 U/L (12-78); SODIUM 140 mmol/L (136-145); TOTAL PROTEIN 6.8 gm/dL (6.4-8.2); TRIGLYCERIDES 52 mg/dl (<150)
[2022-05-06 13:39] LABS: ALKALINE PHOSPHATASE 68 U/L (45-117); FREE T4 1.01 ng/dl (0.76-1.46); LDL CHOLESTEROL 85 mg/dL (9-159); THYROID STIM HORMONE (HS) 0.765 uIU/ml (0.358-4.75)
[2022-05-06 13:52] LABS: VITAMIN D, 25-HYDROXY 23.2 ng/mL (30-100)
== END | disposition home or self-care (01) ==
LOC: CARD 04-23 00:58
PROVIDERS: ATTEND Internal Medicine
DX: R94.31 Abnormal electrocardiogram [ECG] [EKG] (principal); I10 Essential (primary) hypertension

== ENCOUNTER 2022-06-17 04:16 | Emergency (ER) | payer OTHER | END 2022-06-17 05:27 | disposition home or self-care (01) | LOC: ED 04:16 | DX: M17.11 Unilateral primary osteoarthritis, right knee (principal); M21.332 Wrist drop, left wrist; Z91.030 Bee allergy status; Z91.018 Allergy to other foods; F17.200 Nicotine dependence, unspecified, uncomplicated; F10.90 Alcohol use, unspecified, uncomplicated; F14.10 Cocaine abuse, uncomplicated ==

== ENCOUNTER → 2022-07-15 | Outpatient (CLI) | payer OTHER | END | disposition home or self-care (01) | LOC: MRI 09:00 | PROVIDERS: ATTEND Internal Medicine | DX: J32.9 Chronic sinusitis, unspecified (principal); R29.898 Other symptoms and signs involving the musculoskeletal system ==

== ENCOUNTER 2022-08-24 16:38 | Emergency (ER) | payer OTHER ==
[~2022-08-24] VITALS: Ht 172.7 cm; Wt 72.6 kg
[2022-08-24] MEDS ORDERED: CYCLOBENZAPRINE10 MG PO (18:32)
[2022-08-24] MEDS ORDERED: TRAMADOL HCL50 MG PO (18:32)
== END 2022-08-24 19:22 | disposition home or self-care (01) ==
LOC: ED 16:38
DX: R51.9 Headache, unspecified (principal); M54.50 Low back pain, unspecified; M54.2 Cervicalgia; J45.909 Unspecified asthma, uncomplicated; I10 Essential (primary) hypertension; Z91.018 Allergy to other foods; Z91.030 Bee allergy status; F17.200 Nicotine dependence, unspecified, uncomplicated; F14.10 Cocaine abuse, uncomplicated; V43.92XA Unspecified car occupant injured in collision with other type car in traffic accident, initial encounter; W22.10XA Striking against or struck by unspecified automobile airbag, initial encounter; Y93.89 Activity, other specified; Y92.410 Unspecified street and highway as the place of occurrence of the external cause; Y99.8 Other external cause status

== ENCOUNTER 2022-08-26 18:52 | Emergency (ER) | payer OTHER ==
[~2022-08-26] VITALS: Ht 182.8 cm; Wt 63.5 kg
[~2022-08-26 18:52] MED LIST changes: +CYCLOBENZAPRINE10 MG PO; +TRAMADOL HCL50 MG PO
[2022-08-26 19:18] LABS: URINE AMPHETAMINES Negative (1000ng/ml); URINE BARBITURATES Negative (200ng/ml); URINE BENZODIAZEPINES Positive (200ng/ml); URINE CANNABINOIDS (THC) Negative (50ng/ml); URINE COCAINE Positive (300ng/ml); URINE METHADONE Negative (300ng/ml); URINE OPIATES Negative (300ng/ml); URINE PHENCYCLIDINE Negative (25ng/ml)
[2022-08-26 19:40] LABS: BASO % 0.3 % (0.0-1.0); HEMATOCRIT 53.7 % (42.0-52.0); LYMPH # 2.9 10*3/uL (1.3-4.4); LYMPH % 24.7 % (27.0-41.0); MEAN CELL VOLUME 100.6 fl (80.0-94.0); MEAN CORPUSCULAR HGB 32.2 pg (27.0-31.0); MEAN PLATELET VOLUME 9.2 fl (9.6-12.3); MONO # 0.7 10*3/uL (0.1-1.0); MONO % 6.4 % (3.0-9.0); NEUT # 7.9 10*3/uL (2.3-7.9); NEUT % 68.3 % (47.0-73.0); PLATELET COUNT AUTOMATED 337 10*3/uL (130-400); RED BLOOD COUNT 5.34 10*6/uL (4.50-5.90); RED CELL DISTRI WIDTH 12.5 % (0-14.5); WHITE BLOOD COUNT 11.6 10*3/uL (4.8-10.8)
[2022-08-26 19:56] LABS: ALKALINE PHOSPHATASE 80 U/L (46-116); BUN 14 mg/dl (9-23); CHLORIDE 105 mmol/L (98-107); POTASSIUM 3.1 mmol/L (3.4-5.1); SGPT/ALT 46 U/L (10-49); TOTAL PROTEIN 8.7 gm/dL (6.0-8.0)
== END 2022-08-27 00:20 | disposition short-term general hospital (02) ==
LOC: ED 18:52
PROVIDERS: Emergency Medicine
DX: T50.901A Poisoning by unspecified drugs, medicaments and biological substances, accidental (unintentional), initial encounter (principal); T68.XXXA Hypothermia, initial encounter; E87.6 Hypokalemia; E87.20 Acidosis, unspecified; D75.89 Other specified diseases of blood and blood-forming organs; J93.9 Pneumothorax, unspecified; F17.200 Nicotine dependence, unspecified, uncomplicated; Z91.030 Bee allergy status; Z91.018 Allergy to other foods; Z79.899 Other long term (current) drug therapy; Y92.89 Other specified places as the place of occurrence of the external cause

== ENCOUNTER 2023-05-10 17:57 | Emergency (ER) | payer OTHER ==
[~2023-05-10] VITALS: Ht 172.7 cm; Wt 77.1 kg
[2023-05-10] MEDS ORDERED: AMOX-CLAV 875-1 EACH PO (20:04)
== END 2023-05-10 20:27 | disposition home or self-care (01) ==
LOC: ED
DX: H66.91 Otitis media, unspecified, right ear (principal); J45.909 Unspecified asthma, uncomplicated; I10 Essential (primary) hypertension; Z91.030 Bee allergy status; Z91.018 Allergy to other foods; Z98.890 Other specified postprocedural states; F14.10 Cocaine abuse, uncomplicated; F17.200 Nicotine dependence, unspecified, uncomplicated

== ENCOUNTER 2023-05-14 17:47 | Emergency (ER) | payer OTHER ==
[~2023-05-14] VITALS: Ht 172.7 cm; Wt 77.1 kg
[~2023-05-14 17:47] MED LIST changes: +AMOX-CLAV 875-1 EACH PO
[2023-05-14] MEDS ORDERED: ZITHROMAX250 MG PO (23:59)
== END 2023-05-15 00:04 | disposition home or self-care (01) ==
LOC: ED 17:47
DX: H66.91 Otitis media, unspecified, right ear (principal); H60.91 Unspecified otitis externa, right ear; F17.210 Nicotine dependence, cigarettes, uncomplicated; Z91.030 Bee allergy status; Z91.018 Allergy to other foods; Z79.2 Long term (current) use of antibiotics; Z79.899 Other long term (current) drug therapy

== ENCOUNTER 2023-12-23 00:56 | Inpatient (IN) | payer OTHER ==
[~2023-12-23] VITALS: Ht 172.7 cm; Wt 70.5 kg
[2023-12-23] VITALS (11 sets, daily range): BP systolic 96–148; BP diastolic 61–107
[2023-12-23] MEDS ORDERED: Naloxone Hydrochloride 2 MG/2 ML SYR IV ONE (01:00)
[2023-12-23] MEDS ORDERED: Naloxone Hydrochloride 2 MG/2 ML SYR ONE (01:12)
[2023-12-23] MEDS ORDERED: SODIUM CHLORIDE 0.9% 1,000 ML IV ONE (01:25)
[2023-12-23 01:45] LABS: HEMATOCRIT 56.1 % (42.0-52.0); MEAN CELL VOLUME 99.5 fl (80.0-94.0); MEAN CORPUSCULAR HGB 32.3 pg (27.0-31.0); MEAN CORPUSCULAR HGB CONC 32.4 g/dl (33.0-37.0); PLATELET COUNT AUTOMATED 305 10*3/uL (130-400); RED BLOOD COUNT 5.64 10*6/uL (4.50-5.90); RED CELL DISTRI WIDTH 12.6 % (0-14.5); WHITE BLOOD COUNT 16.3 10*3/uL (4.8-10.8)
[2023-12-23 02:09] LABS: MANUAL DIFF REFLEX YES
[2023-12-23 02:12] LABS: PLATELET SUFFICIENCY NORMAL (NORMAL); TOTAL CELLS COUNTED 100 #CELLS
[2023-12-23] MEDS ORDERED: Lidocaine Hydrochloride 100 MG/5 ML SYR IV ONE (02:37)
[2023-12-23 03:01] LABS: ALKALINE PHOSPHATASE 96 U/L (46-116); BUN 42 mg/dl (9-23); CHLORIDE 101 mmol/L (98-107); POTASSIUM 4.4 mmol/L (3.4-5.1); SGPT/ALT 63 U/L (5-49); TOTAL PROTEIN 7.9 gm/dL (6.0-8.0)
[2023-12-23 03:07] LABS: BILIRUBIN Negative (Negative); BLOOD Negative (Negative); CLARITY Clear (Clear); COLOR Orange (Yellow); GLUCOSE Negative (Negative); KETONE Trace (Negative); LEUKO ESTERASE Trace (Negative); NITRITE Negative (Negative); SPECIFIC GRAVITY >= 1.030 (1.001-1.030)
[2023-12-23 03:14] LABS: URINE AMPHETAMINES Negative (1000ng/ml); URINE BARBITURATES Negative (200ng/ml); URINE BENZODIAZEPINES Positive (200ng/ml); URINE CANNABINOIDS (THC) Positive (50ng/ml); URINE COCAINE Positive (300ng/ml); URINE METHADONE Positive (300ng/ml); URINE OPIATES Negative (300ng/ml); URINE PHENCYCLIDINE Negative (25ng/ml)
[2023-12-23 03:16] LABS: ETHYL ALCOHOL < 3.0 mg/dl (<3)
[2023-12-23] MEDS ORDERED: Lactated Ringer's Solution 1,000 ML IV SCH ×2 (08:05→11:15)
[2023-12-23] MEDS ORDERED: CITALOPRAM20 MG PO (08:10)
[2023-12-23] MEDS ORDERED: MELOXICAM15 MG PO (08:10)
[2023-12-23] MEDS ORDERED: Lactated Ringer's Solution 500 ML BAG IV SCH (08:40)
[2023-12-23] MEDS ORDERED: Lactated Ringer's Solution 1,000 ML IV ONE ×2 (08:55→10:30)
[2023-12-23] MEDS ORDERED: Acetaminophen/Oxycodone 5 MG/325 MG TABLET PO ONE (12:30)
[2023-12-23] MEDS ORDERED: SODIUM CHLORIDE 0.9% 1,000 ML IV SCH (13:40)
[2023-12-23] MEDS ORDERED: Ceftriaxone Sodium 10 ML IV SCH (22:30)
[2023-12-24] VITALS (8 sets, daily range): BP systolic 125–150; BP diastolic 88–106
[2023-12-24 06:30] LABS: MEAN PLATELET VOLUME 10.2 fl (9.6-12.3)
[2023-12-24 06:54] LABS: ALKALINE PHOSPHATASE 71 U/L (46-116); CHLORIDE 107 mmol/L (98-107); POTASSIUM 4.3 mmol/L (3.4-5.1); SGPT/ALT 235 U/L (5-49)
[2023-12-24 07:00] LABS: BUN 30 mg/dl (9-23)
[2023-12-24 07:28] LABS: HEMATOCRIT 44.6 % (42.0-52.0); MEAN CORPUSCULAR HGB 32.6 pg (27.0-31.0); MEAN CORPUSCULAR HGB CONC 34.5 g/dl (33.0-37.0); RED BLOOD COUNT 4.72 10*6/uL (4.50-5.90); RED CELL DISTRI WIDTH 12.8 % (0-14.5); WHITE BLOOD COUNT 25.1 10*3/uL (4.8-10.8)
[2023-12-24 07:33] LABS: MEAN CELL VOLUME 94.5 fl (80.0-94.0); PLATELET COUNT AUTOMATED 197 10*3/uL (130-400)
[2023-12-24 07:35] LABS: MANUAL DIFF REFLEX YES
[2023-12-24 08:14] LABS: BURR CELLS MODERATE; PLATELET SUFFICIENCY NORMAL (NORMAL); TOTAL CELLS COUNTED 100 #CELLS
[2023-12-24] MEDS ORDERED: Piperacillin Sodium/Tazobact 50 ML IV SCH (10:00)
[2023-12-24] MEDS ORDERED: VANCOMYCIN/WATER FOR INJ (PEG) 150 ML IV SCH (11:00)
[2023-12-24] MEDS ORDERED: Technetium Tc 99M Tetrofosmi 0.23 MG KIT IJ SCH (16:45)
[2023-12-24] MEDS ORDERED: FLUCONAZOLE 100 ML IV SCH (17:00)
[2023-12-24] MEDS ORDERED: LISINOPRIL 20 MG TAB PO ONE (23:40)
[2023-12-25] VITALS: BP 153/105
[2023-12-25] MEDS ORDERED: Prochlorperazine Edisylate 10 MG/2 ML VIAL IV ONE (05:20)
[2023-12-25 06:00] LABS: MEAN CELL VOLUME 94.7 fl (80.0-94.0); MEAN CORPUSCULAR HGB 32.8 pg (27.0-31.0); MEAN CORPUSCULAR HGB CONC 34.6 g/dl (33.0-37.0); MEAN PLATELET VOLUME 10.4 fl (9.6-12.3); PLATELET COUNT AUTOMATED 181 10*3/uL (130-400); RED BLOOD COUNT 4.12 10*6/uL (4.50-5.90); RED CELL DISTRI WIDTH 12.6 % (0-14.5); WHITE BLOOD COUNT 20.2 10*3/uL (4.8-10.8)
[2023-12-25 06:13] LABS: MANUAL DIFF REFLEX YES
[2023-12-25] MEDS ORDERED: Regadenoson 0.4 MG/5 ML SYR IV ONE (06:14)
[2023-12-25 07:02] LABS: ALKALINE PHOSPHATASE 65 U/L (46-116); CHLORIDE 107 mmol/L (98-107); POTASSIUM 3.9 mmol/L (3.4-5.1); SGPT/ALT 146 U/L (5-49); TOTAL PROTEIN 5.7 gm/dL (6.0-8.0)
[2023-12-25 07:04] LABS: BUN 17 mg/dl (9-23)
[2023-12-25 07:44] LABS: TOTAL CELLS COUNTED 100 #CELLS
[2023-12-25 07:45] LABS: BURR CELLS MODERATE; PLATELET SUFFICIENCY NORMAL (NORMAL)
[2023-12-25 08:00] VITALS: BP 126/94
[2023-12-25] MEDS ORDERED: Piperacillin Sodium/Tazobact 50 ML IV SCH ×2 (12:00→20:00)
[2023-12-25 13:00] VITALS: BP 119/89
[2023-12-25] MEDS ORDERED: Vancomycin Hydrochloride 1,000 MG in SODIUM CHLORIDE 0.9% 250 ML IV SCH (14:00)
[2023-12-25 16:00] VITALS: BP 145/90
[2023-12-25 20:00] VITALS: BP 132/91
[2023-12-26 00:07] VITALS: BP 129/92
[2023-12-26 06:05] LABS: HEMATOCRIT 35.7 % (42.0-52.0); MEAN CELL VOLUME 96.2 fl (80.0-94.0); MEAN CORPUSCULAR HGB 32.1 pg (27.0-31.0); MEAN CORPUSCULAR HGB CONC 33.3 g/dl (33.0-37.0); MEAN PLATELET VOLUME 10.9 fl (9.6-12.3); PLATELET COUNT AUTOMATED 203 10*3/uL (130-400); RED BLOOD COUNT 3.71 10*6/uL (4.50-5.90); RED CELL DISTRI WIDTH 12.7 % (0-14.5); WHITE BLOOD COUNT 15.1 10*3/uL (4.8-10.8)
[2023-12-26 06:13] LABS: HBSAG Negative (Negative); HEP B CORE AB, IGM Negative (Negative); HEPATITIS C ANTIBODY Non Reactive (Non Reactive)
[2023-12-26 06:15] LABS: MANUAL DIFF REFLEX YES
[2023-12-26 06:21] LABS: ALKALINE PHOSPHATASE 66 U/L (46-116); BUN 11 mg/dl (9-23); CHLORIDE 106 mmol/L (98-107); SGPT/ALT 101 U/L (5-49); TOTAL PROTEIN 5.5 gm/dL (6.0-8.0)
[2023-12-26 06:55] LABS: POTASSIUM 3.3 mmol/L (3.4-5.1)
[2023-12-26 07:46] LABS: PLATELET SUFFICIENCY NORMAL (NORMAL); TOTAL CELLS COUNTED 100 #CELLS
[2023-12-26 08:00] VITALS: BP 140/97
[2023-12-26] MEDS ORDERED: POTASSIUM CHLORIDE 20 MEQ TAB PO ONE (10:10)
[2023-12-26 12:00] VITALS: BP 126/78
[2023-12-26 16:00] VITALS: BP 140/60
[2023-12-26] MEDS ORDERED: PREDNISOLONE ACE5 M5 OP (17:43)
[2023-12-26] MEDS ORDERED: LATANOPROST2.5 ML OP (17:48)
[2023-12-26] MEDS ORDERED: METRONIDAZOLE500 M1 PO (20:32)
[2023-12-26] MEDS ORDERED: BARIUM SULFATE 2% 450 ML BOT PO SCH (21:00)
[2023-12-26] MEDS ORDERED: LATANOPROST 0.005% 2.5 ML BOTTLE OPH SCH (22:00)
[2023-12-26] MEDS ORDERED: PREDNISOLONE ACETATE 1% OP SCH (22:00)
[2023-12-27] MEDS ORDERED: ALBUTEROL SULF HFA 1 INH (17:16)
== END 2023-12-26 21:44 | disposition left against medical advice (07) | DRG 812 ==
LOC: ED 00:56 → EDHOLD 08:39 → 4E 08:39
PROVIDERS: Internal Medicine; Internal Medicine Infectious Disease; ADMIT Internal Medicine; ATTEND Internal Medicine
PROC: 05HY33Z Insertion of Infusion Device into Upper Vein, Percutaneous Approach (ICD-10-PCS; 2023-12-23)
PROC: 4A02XM4 Measurement of Cardiac Total Activity, External Approach (ICD-10-PCS; principal; 2023-12-25)
PROC: 3E073KZ Introduction of Other Diagnostic Substance into Coronary Artery, Percutaneous Approach (ICD-10-PCS; 2023-12-25)
DX: T40.3X1A Poisoning by methadone, accidental (unintentional), initial encounter (principal); R65.11 Systemic inflammatory response syndrome (SIRS) of non-infectious origin with acute organ dysfunction; G93.41 Metabolic encephalopathy; M62.82 Rhabdomyolysis; E87.20 Acidosis, unspecified; E83.41 Hypermagnesemia; I24.89 Other forms of acute ischemic heart disease; B37.0 Candidal stomatitis; N17.9 Acute kidney failure, unspecified; E86.0 Dehydration; J45.909 Unspecified asthma, uncomplicated; D75.1 Secondary polycythemia; F17.210 Nicotine dependence, cigarettes, uncomplicated; F41.9 Anxiety disorder, unspecified; F14.10 Cocaine abuse, uncomplicated; D72.829 Elevated white blood cell count, unspecified; F19.10 Other psychoactive substance abuse, uncomplicated; F11.20 Opioid dependence, uncomplicated; F32.A Depression, unspecified; Z53.29 Procedure and treatment not carried out because of patient's decision for other reasons; Y92.89 Other specified places as the place of occurrence of the external cause; Z91.014 Allergy to mammalian meats; Z91.02 Food additives allergy status; Z71.6 Tobacco abuse counseling; Z82.49 Family history of ischemic heart disease and other diseases of the circulatory system; Z83.3 Family history of diabetes mellitus

== ENCOUNTER 2023-12-27 17:01 | Emergency (ER) | payer OTHER ==
[~2023-12-27] VITALS: Ht 172.7 cm; Wt 70.3 kg
[~2023-12-27 17:01] MED LIST changes: +CITALOPRAM20 MG PO; +MELOXICAM15 MG PO; +METRONIDAZOLE500 M1 PO; +PREDNISOLONE ACE5 M5 OP
[2023-12-27 17:16] VITALS: BP 121/87
[2023-12-27] MEDS ORDERED: ALBUTEROL SULF HFA 1 INH (17:16)
[2023-12-27] MEDS ORDERED: IOHEXOL 300 MG/ML 100 ML VIAL IV ONE (17:20)
[2023-12-27] MEDS ORDERED: Lactated Ringer's Solution 1,000 ML IV SCH (17:25)
[2023-12-27 17:36] LABS: BASO % 0.2 % (0.0-1.0); EOS % 0.2 % (1.0-4.0); HEMATOCRIT 39.4 % (42.0-52.0); LYMPH # 4.3 10*3/uL (1.3-4.4); LYMPH % 32.7 % (27.0-41.0); MEAN CORPUSCULAR HGB 32.1 pg (27.0-31.0); MEAN CORPUSCULAR HGB CONC 32.7 g/dl (33.0-37.0); MEAN PLATELET VOLUME 9.6 fl (9.6-12.3); MONO # 0.7 10*3/uL (0.1-1.0); MONO % 5.6 % (3.0-9.0); NEUT # 7.9 10*3/uL (2.3-7.9); NEUT % 60.6 % (47.0-73.0); RED BLOOD COUNT 4.02 10*6/uL (4.50-5.90); RED CELL DISTRI WIDTH 12.6 % (0-14.5)
[2023-12-27 17:38] LABS: PLATELET COUNT AUTOMATED 309 10*3/uL (130-400)
[2023-12-27 17:47] LABS: ACT PARTIAL THROMBO TIME 23.4 SECONDS (20.0-32.1)
[2023-12-27 18:01] LABS: ETHYL ALCOHOL 3.7 mg/dl (<3)
[2023-12-27 18:04] LABS: ALKALINE PHOSPHATASE 66 U/L (46-116); BUN 11 mg/dl (9-23); CHLORIDE 104 mmol/L (98-107); LIPASE 58 U/L (12-53); POTASSIUM 3.8 mmol/L (3.4-5.1); SGPT/ALT 81 U/L (5-49); TOTAL PROTEIN 6.9 gm/dL (6.0-8.0)
[2023-12-27 18:07] LABS: BILIRUBIN Negative (Negative); BLOOD Negative (Negative); CLARITY Clear (Clear); COLOR Yellow (Yellow); GLUCOSE Negative (Negative); KETONE Negative (Negative); LEUKO ESTERASE Trace (Negative); NITRITE Negative (Negative)
[2023-12-27 18:14] LABS: URINE AMPHETAMINES Negative (1000ng/ml); URINE BARBITURATES Negative (200ng/ml); URINE BENZODIAZEPINES Negative (200ng/ml); URINE CANNABINOIDS (THC) Positive (50ng/ml); URINE COCAINE Positive (300ng/ml); URINE METHADONE Positive (300ng/ml); URINE OPIATES Negative (300ng/ml); URINE PHENCYCLIDINE Negative (25ng/ml)
[2023-12-27 18:15] LABS: MUCOUS 1+; RBC 0-2 rbc/hpf (0-2)
== END 2023-12-27 18:55 | disposition admitted as inpatient to this hospital (09) ==
LOC: ED 17:01 → EDHOLD 18:34 → ED 18:34
PROVIDERS: Emergency Medicine
DX: R10.13 Epigastric pain (principal); F19.90 Other psychoactive substance use, unspecified, uncomplicated; R06.02 Shortness of breath; R42 Dizziness and giddiness; F41.9 Anxiety disorder, unspecified; J44.9 Chronic obstructive pulmonary disease, unspecified; F17.210 Nicotine dependence, cigarettes, uncomplicated; Z88.0 Allergy status to penicillin; Z91.030 Bee allergy status; Z91.018 Allergy to other foods; Z79.899 Other long term (current) drug therapy

== ENCOUNTER 2024-01-22 12:12 | Emergency (ER) | payer OTHER ==
[~2024-01-22] VITALS: Ht 172.7 cm; Wt 68.0 kg
[~2024-01-22 12:12] MED LIST changes: +ALBUTEROL SULF HFA 1 INH
[2024-01-22] MEDS ORDERED: VITAMIN D350 MCG PO (13:17)
[2024-01-22] MEDS ORDERED: CYCLOBENZAPRINE10 MG PO (13:17)
[2024-01-22] MEDS ORDERED: DULERA 100 MCG-13 GM INH (13:18)
[2024-01-22 13:22] LABS: BASO % 0.4 % (0.0-1.0); EOS % 0.4 % (1.0-4.0); HEMATOCRIT 43.6 % (42.0-52.0); LYMPH # 4.4 10*3/uL (1.3-4.4); LYMPH % 55.4 % (27.0-41.0); MEAN CELL VOLUME 101.9 fl (80.0-94.0); MEAN CORPUSCULAR HGB 32.9 pg (27.0-31.0); MEAN CORPUSCULAR HGB CONC 32.3 g/dl (33.0-37.0); MEAN PLATELET VOLUME 9.2 fl (9.6-12.3); MONO # 0.4 10*3/uL (0.1-1.0); MONO % 4.8 % (3.0-9.0); NEUT # 3.1 10*3/uL (2.3-7.9); NEUT % 38.7 % (47.0-73.0); PLATELET COUNT AUTOMATED 314 10*3/uL (130-400); RED BLOOD COUNT 4.28 10*6/uL (4.50-5.90); RED CELL DISTRI WIDTH 13.6 % (0-14.5)
[2024-01-22 13:44] LABS: ALKALINE PHOSPHATASE 73 U/L (46-116); CHLORIDE 110 mmol/L (98-107); LIPASE 44 U/L (12-53); SGPT/ALT 17 U/L (5-49); TOTAL PROTEIN 7.2 gm/dL (6.0-8.0)
[2024-01-22 13:46] LABS: BUN < 5 mg/dl (9-23); POTASSIUM 4.4 mmol/L (3.4-5.1)
== END 2024-01-22 14:15 | disposition home or self-care (01) ==
LOC: ED 12:12
PROVIDERS: Emergency Medicine
DX: R10.9 Unspecified abdominal pain (principal); F41.9 Anxiety disorder, unspecified; J44.9 Chronic obstructive pulmonary disease, unspecified; E83.41 Hypermagnesemia; E87.6 Hypokalemia; E87.1 Hypo-osmolality and hyponatremia; D64.9 Anemia, unspecified; I10 Essential (primary) hypertension; F14.10 Cocaine abuse, uncomplicated; F17.200 Nicotine dependence, unspecified, uncomplicated; Z98.890 Other specified postprocedural states

== ENCOUNTER 2024-06-12 20:15 | Emergency (ER) | payer OTHER, MEDICAID ==
[~2024-06-12] VITALS: Ht 172.7 cm; Wt 80.3 kg
[~2024-06-12 20:15] MED LIST changes: +DULERA 100 MCG-13 GM INH; +VITAMIN D350 MCG PO
[2024-06-12] MEDS ORDERED: Ketorolac Tromethamine 60 MG/2 ML VIAL IM ONE (22:25)
[2024-06-12] MEDS ORDERED: MIRALAX POWDER17 G1 PO (22:27)
== END 2024-06-12 22:42 | disposition home or self-care (01) ==
LOC: ED 20:15
DX: K56.41 Fecal impaction (principal); R14.1 Gas pain; J45.909 Unspecified asthma, uncomplicated; I10 Essential (primary) hypertension; F14.10 Cocaine abuse, uncomplicated; F17.200 Nicotine dependence, unspecified, uncomplicated; Z91.030 Bee allergy status; Z88.0 Allergy status to penicillin; Z91.018 Allergy to other foods; Z98.890 Other specified postprocedural states

== ENCOUNTER 2024-09-20 15:58 | Emergency (ER) | payer OTHER, MEDICAID ==
[~2024-09-20] VITALS: Wt 70.3 kg
[~2024-09-20 15:58] MED LIST changes: +MIRALAX POWDER17 G1 PO
== END 2024-09-20 19:15 | disposition home or self-care (01) ==
LOC: ED 15:58
DX: F11.11 Opioid abuse, in remission (principal); J45.909 Unspecified asthma, uncomplicated; I10 Essential (primary) hypertension; Z79.899 Other long term (current) drug therapy; Z91.030 Bee allergy status; Z88.0 Allergy status to penicillin; Z91.048 Other nonmedicinal substance allergy status

== ENCOUNTER 2024-12-05 10:22 | Emergency (ER) | payer OTHER ==
[~2024-12-05] VITALS: Ht 172.7 cm; Wt 72.6 kg
[2024-12-05] MEDS ORDERED: MORPHINE Sulfate 2 MG/ML SYR IV ONE (12:15)
[2024-12-05] MEDS ORDERED: Ondansetron Hydrochloride 4 MG/2 ML VIAL IV ONE (12:15)
[2024-12-05] MEDS ORDERED: Ketorolac Tromethamine 15 MG/ML VIAL IV ONE (12:15)
[2024-12-05 12:35] LABS: BASO % 0.4 % (0.0-1.0); EOS # 0.1 10*3/uL (0.0-0.4); HEMATOCRIT 42.4 % (42.0-52.0); MEAN CORPUSCULAR HGB 33.3 pg (27.0-31.0); MEAN CORPUSCULAR HGB CONC 33.3 g/dl (33.0-37.0); MEAN PLATELET VOLUME 9.4 fl (9.6-12.3); MONO # 0.4 10*3/uL (0.1-1.0); NEUT # 3.5 10*3/uL (2.3-7.9); NEUT % 43.2 % (47.0-73.0); PLATELET COUNT AUTOMATED 274 10*3/uL (130-400); RED BLOOD COUNT 4.24 10*6/uL (4.50-5.90); RED CELL DISTRI WIDTH 12.7 % (0-14.5); WHITE BLOOD COUNT 8.2 10*3/uL (4.8-10.8)
[2024-12-05 12:56] LABS: ALKALINE PHOSPHATASE 74 U/L (46-116); BUN 15 mg/dl (9-23); CHLORIDE 107 mmol/L (98-107); CPK 121 U/L (34-171); LIPASE 48 U/L (12-53); POTASSIUM 4.4 mmol/L (3.4-5.1); SGPT/ALT 17 U/L (5-49)
[2024-12-05] MEDS ORDERED: METHOCARBAMOL750 M1 PO (14:08)
== END 2024-12-05 14:22 | disposition home or self-care (01) ==
LOC: ED 10:22
PROVIDERS: Emergency Medicine
DX: S39.011A Strain of muscle, fascia and tendon of abdomen, initial encounter (principal); R19.7 Diarrhea, unspecified; Z91.030 Bee allergy status; Z88.0 Allergy status to penicillin; Z91.018 Allergy to other foods; Z79.899 Other long term (current) drug therapy; Z87.891 Personal history of nicotine dependence; X50.1XXA Overexertion from prolonged static or awkward postures, initial encounter; Y93.89 Activity, other specified; Y92.89 Other specified places as the place of occurrence of the external cause; Y99.8 Other external cause status